=== PATIENT | female | born 1975 | race Caucasian/White ===

== ENCOUNTER 2019-09-26 22:05 | Emergency (ER) | payer BC, OTHER ==
[2019-09-26] MEDS ORDERED: Ondansetron 4 MG/2 ML SDV IVPUSH ONE (22:31)
[2019-09-26] MEDS ORDERED: Sodium Chloride 0.9% 1,000 ML IV ONE (22:31)
[2019-09-26] MEDS ORDERED: Ketorolac 30 MG/ML SDV IVPUSH ONE (22:31)
[2019-09-26] MEDS ORDERED: fentaNYL 100 MCG/2 ML SDV IVPUSH ONE (22:32)
--- NOTE | 2019-09-26 22:36 | EDM.PDOC ---
ED HPI GENERAL MEDICAL PROBLEM - General Chief Complaint: Flank Pain Stated Complaint: Right flank pain Time Seen by Provider: 09/26/19 22:27 Source of Information: Reports: Patient - History of Present Illness INITIAL COMMENTS - FREE TEXT/NARRATIVE: Malorie is a 44 y/o female who comes to the ER via POV accompanied by her for right sided flank pain that she said started 2 days ago and has progressively gotten worse. She has had a kidney stone in the past and this feels very similar. No dysuria, but the flank pain is getting more intense and is starting to wrap around to the front if her abdomen and down into her groin. Right flank Pain Score (Numeric/FACES): 5 - Related Data Allergies Allergy/AdvReac Type Severity Reaction Status Date / Time No Known Allergies Allergy Verified 09/26/19 22:33 Home Meds: Home Meds Ibuprofen 800 mg PO Q8H #90 tablet 09/26/19 [Rx] Ondansetron [Ondansetron ODT] 4 mg PO Q6H PRN #15 tab.rapdis 09/26/19 [Rx] Tamsulosin [Flomax] 0.4 mg PO DAILY #30 cap.er 09/26/19 [Rx] oxyCODONE HCl/Acetaminophen [Oxycodone-Acetaminophen 5-325] 1 - 2 each PO Q4HR 3 Days #30 tablet 09/26/19 [Rx] Past Medical History Genitourinary History: Reports: Renal Calculus Social & Family History - Living Situation & Occupation Living situation: Reports: Review of Systems - Review of Systems Review Of Systems: See Below Constitutional: Reports: No Symptoms Eyes: Reports: No Symptoms Ears: Reports: No Symptoms Nose: Reports: No Symptoms Mouth/Throat: Reports: No Symptoms Respiratory: Reports: No Symptoms Cardiovascular: Reports: No Symptoms GI/Abdominal: Reports: Abdominal Pain, Nausea (slight), Other (flank pain) Genitourinary: Reports: No Symptoms Musculoskeletal: Reports: No Symptoms Skin: Reports: No Symptoms Neurological: Reports: No Symptoms Psychiatric: Reports: No Symptoms ED EXAM, GENERAL - Physical Exam Exam: See Below General Appearance: Alert, WD/WN, No Apparent Distress, Other (Adult female, standing in exam room bedside cart for position of comfort, tears noteed in eyes due to increasing pain.) Ears: Hearing Grossly Normal Nose: Normal Inspection Throat/Mouth: Normal Lips, Normal Teeth, Normal Voice Head: Atraumatic, Normocephalic Neck: Other (Deferred) Respiratory/Chest: No Respiratory Distress, Lungs Clear, Normal Breath Sounds, No Accessory Muscle Use, Chest Non-Tender Cardiovascular: Normal Peripheral Pulses, Regular Rate, Rhythm, No Edema, No Murmur GI/Abdominal: Normal Bowel Sounds, Soft, Non-Tender, No Distention, No Mass, Tender (+RUQ that extends from R flank region). No: Rigid, Rebound, Mass (Female) Exam: Deferred Rectal (Female) Exam: Deferred Back Exam: CVA Tenderness (R) Extremities: Non-Tender, Normal Capillary Refill Neurological: Alert, Oriented, CN II-XII Intact, Normal Cognition, No Motor/ Sensory Deficits Psychiatric: Normal Affect, Normal Mood Skin Exam: Warm, Dry, Intact, Normal Color Lymphatic: No Adenopathy Course - Vital Signs Text/Narrative:: The patient was seen by the [facility]. Labs ordered. She was given a liter of NS, Fentanyl 100mcg IVP, Toradol 30g IVP, and Ondanestron 4 mg IVP. 2340 Patient more comfortable now. Labs reviewed. Note intact blood on UA, neg protein. CT ordered to r/o stone. 0125 [address]CT results reviewed. Note obstructing stone in left ureter. Will consult Urology planning consultant at [facility]. 0[address] Case discussed with ER dr Dr Willard. Will treat patient as an outpatient with Flomax, pain meds, and antiemetics and then have her seen by her PCP to set up a Urology referral. Patient is on agreement, but if she is unable to manage her pain at home, she is advised to return and we will admit her for pain management. 0150 She was given Flomax 0.4mg po x 1 dose. Other discharge instructions were reviewed with her. She left the ER in stable condition. Last Recorded V/S: Last Vital Signs Temp 37.3 C 09/26/19 22:05 Pulse 66 09/27/19 00:10 Resp 16 09/27/19 00:10 BP 174/90 H 09/27/19 00:10 Pulse Ox - Orders/Labs/Meds Orders: Active Orders 24 hr Category Date Time Status Abdomen Pelvis wo Cont [CT] Stat Exams 09/26/19 22:32 Taken Labs: Laboratory Tests 09/26/19 09/26/19 09/26/19 Range/Units 22:20 22:20 22:40 WBC 11.0 H (4.0-10.0) x10^3/uL RBC 5.38 (4.00-5.50) x10^6/uL Hgb 15.3 (12.0-16.0) g/dL Hct 44.6 (33.0-47.0) % MCV 82.9 (78.0-93.0) fL MCH 28.4 (26.0-32.0) pg MCHC 34.3 (32.0-36.0) g/dL RDW Coeff of Cristina 13.4 (10.0-15.0) % Plt Count 307 (130-400) x10^3/uL Neut % (Auto) 61.1 (50.0-80.0) % Lymph % (Auto) 30.3 (25.0-50.0) % [place] % (Auto) 6.4 (2.0-11.0) % Eos % (Auto) 1.7 (0.0-4.0) % Baso % (Auto) 0.5 (0.2-1.2) % Sodium (136-145) mmol/L Potassium (3.5-5.1) mmol/L Chloride (98-107) mmol/L Carbon Dioxide (21-32) mmol/L Anion Gap (10-20) mmol/L BUN (7-18) mg/dL Creatinine (0.55-1.02) mg/dL Est Cr Clr Drug Dosing mL/min Estimated GFR (MDRD) Glucose (74-106) mg/dL Calcium (8.5-10.1) mg/dL Corrected Calcium (8.5-10.1) mg/dL Total Bilirubin (0.2-1.0) mg/dL AST (15-37) U/L ALT (14-59) U/L Alkaline Phosphatase (46-116) U/L Total Protein (6.4-8.2) g/dL Albumin (3.4-5.0) g/dL Globulin Albumin/Globulin Ratio Urine Color Yellow (YELLOW) Urine Appearance Turbid H (CLEAR) Urine pH 7.5 (5.0-8.0) Ur Specific [place] 1.020 Urine Protein Negative (NEGATIVE) mg/dL Urine Glucose (UA) Negative (NEGATIVE) mg/dL Urine Ketones Negative (NEGATIVE) mg/dL Urine Occult Blood Moderate H (NEGATIVE) Urine Nitrite Negative (NEGATIVE) Urine Bilirubin Negative (NEGATIVE) Urine Urobilinogen 0.2 (0.2) EU/dL Ur Leukocyte Esterase Negative (NEGATIVE) Urine RBC 40-50 H (NOT SEEN) /HPF Urine WBC 0-5 (NOT SEEN) /HPF Ur Squamous Epith Cells Occasional H (NEGATIVE) /HPF Amorphous Sediment Many Urine Bacteria Few H (NEGATIVE) /HPF Urine Mucus Few H (NEGATIVE) /LPF Urine HCG, Qual Negative (NEGATIVE) 09/26/19 Range/Units 22:40 WBC (4.0-10.0) x10^3/uL RBC (4.00-5.50) x10^6/uL Hgb (12.0-16.0) g/dL Hct (33.0-47.0) % MCV (78.0-93.0) fL MCH (26.0-32.0) pg MCHC (32.0-36.0) g/dL RDW Coeff of Cristina (10.0-15.0) % Plt Count (130-400) x10^3/uL Neut % (Auto) (50.0-80.0) % Lymph % (Auto) (25.0-50.0) % [place] % (Auto) (2.0-11.0) % Eos % (Auto) (0.0-4.0) % Baso % (Auto) (0.2-1.2) % Sodium 142 (136-145) mmol/L Potassium 3.9 (3.5-5.1) mmol/L Chloride 106 (98-107) mmol/L Carbon Dioxide 24 (21-32) mmol/L Anion Gap 15.9 (10-20) mmol/L BUN 15 (7-18) mg/dL Creatinine 0.8 (0.55-1.02) mg/dL Est Cr Clr Drug Dosing 77.49 mL/min Estimated GFR (MDRD) > 60 Glucose 116 H (74-106) mg/dL Calcium 9.1 (8.5-10.1) mg/dL Corrected Calcium 9.66 (8.5-10.1) mg/dL Total Bilirubin 0.2 (0.2-1.0) mg/dL AST 10 L (15-37) U/L ALT 17 (14-59) U/L Alkaline Phosphatase 62 (46-116) U/L Total Protein 7.4 (6.4-8.2) g/dL Albumin 3.3 L (3.4-5.0) g/dL Globulin 4.1 Albumin/Globulin Ratio 0.80 Urine Color (YELLOW) Urine Appearance (CLEAR) Urine pH (5.0-8.0) Ur Specific [place] Urine Protein (NEGATIVE) mg/dL Urine Glucose (UA) (NEGATIVE) mg/dL Urine Ketones (NEGATIVE) mg/dL Urine Occult Blood (NEGATIVE) Urine Nitrite (NEGATIVE) Urine Bilirubin (NEGATIVE) Urine Urobilinogen (0.2) EU/dL Ur Leukocyte Esterase (NEGATIVE) Urine RBC (NOT SEEN) /HPF Urine WBC (NOT SEEN) /HPF Ur Squamous Epith Cells (NEGATIVE) /HPF Amorphous Sediment Urine Bacteria (NEGATIVE) /HPF Urine Mucus (NEGATIVE) /LPF Urine HCG, Qual (NEGATIVE) Meds: Medications Discontinued Medications Generic Name Dose Route Start Last Admin Trade Name Freq PRN Reason Stop Dose Admin Fentanyl 100 mcg 09/26/19 22:32 09/26/19 22:45 Sublimaze IVPUSH 09/26/19 22:33 100 mcg ONETIME ONE Administration Hydromorphone HCl 1 mg 09/27/19 00:04 09/27/19 00:10 Dilaudid IVPUSH 09/27/19 00:05 1 mg ONETIME ONE Administration Sodium Chloride 1,000 mls @ 999 mls/hr 09/26/19 22:31 09/26/19 22:40 Normal Saline IV 09/26/19 23:31 999 mls/hr ONETIME ONE Administration Ketorolac Tromethamine 30 mg 09/26/19 22:31 09/26/19 22:47 Toradol IVPUSH 09/26/19 22:32 30 mg ONETIME ONE Administration Ondansetron HCl 4 mg 09/26/19 22:31 09/26/19 22:42 Zofran IVPUSH 09/26/19 22:32 4 mg ONETIME ONE Administration - Radiology Interpretation Free Text/Narrative:: CT Abd/Pelvis WO=large 9 mm stone in right kidney, 3.1 obstructing stone in the right ureter at l$, adn moderate right hydronephrosis Departure - Departure Time of Disposition: 01:51 Disposition: Home, Self-Care 01 Condition: Good Clinical Impression: Hydronephrosis with renal calculous obstruction - Discharge Information *PRESCRIPTION DRUG MONITORING PROGRAM REVIEWED*: Yes *COPY OF PRESCRIPTION DRUG MONITORING REPORT IN PATIENT MICHELLE: Not Applicable ( No Rx found on this patient) Prescriptions: oxyCODONE HCl/Acetaminophen [Oxycodone-Acetaminophen 5-325] 1 - 2 each PO Q4HR 3 Days #30 tablet Ibuprofen 800 mg PO Q8H #90 tablet Ondansetron [Ondansetron ODT] 4 mg PO Q6H PRN #15 tab.rapdis PRN Reason: Nausea Tamsulosin [Flomax] 0.4 mg PO DAILY #30 cap.er Instructions: Hydronephrosis, Dietary Guidelines to Help Prevent Kidney Stones , Kidney Stones, [id number] Referrals: [facility] [Outside] Forms: ED Department Discharge Additional Instructions: -Oxycodone/APAP 5/325mg 1-2 tabs oral every 4-6 hours as needed for pain #5(ER) #30(Rx) -Ondanestron 4mg oral every 6 hours needed for nausea #2(ER) #15 (Rx) -Ibuprofen 800mg oral every 8 hours as needed for pain #90(Rx) -Tamsulosin 0.4mg oral daily #30(Rx) -Strain urine and attempt to retrieve stone if able. Save the stone and take to the clinic for analysis. -Call your PCP office in the AM and get a follow up appt scheduled sometime in the next 7 days. Have your PCP get you a Urology referral. You will need to see Urology for the large 9mm stone in your right kidney even you are able to pass the smaller stone in your ureter. -If you are unable to control your pain at home, please return to the ER for further treatment and possible admission. Sepsis Event Note - Focused Exam Vital Signs: Vital Signs Temp Pulse Resp BP 09/27/19 00:10 66 16 174/90 H 09/26/19 22:05 37.3 C 66 16 203/102 H Date Exam was Performed: 09/27/19 Time Exam was Performed: 01:47 - My Orders Last 24 Hours: My Active Orders 09/26/19 22:32 Abdomen Pelvis wo Cont [CT] Stat - Assessment/Plan Last 24 Hours: My Active Orders 09/26/19 22:32 Abdomen Pelvis wo Cont [CT] Stat
[2019-09-26 23:25] LABS: CHLORIDE,CL 106 mmol/L (98-107); SODIUM,NA 142 mmol/L (136-145)
[2019-09-26 23:27] LABS: ANION GAP 15.9 mmol/L (10-20)
[2019-09-27] MEDS ORDERED: HYDROmorphone 1 MG/ML Syringe IVPUSH ONE (00:04)
[2019-09-27] MEDS ORDERED: Take Home: Ondansetron 4 MG Tab.DIS, 2 Tab Pack PO ONE (01:59)
[2019-09-27] MEDS ORDERED: Take Home: Acetaminophen/oxyCODONE 325-5 MG, 5 Tab Pack PO ONE (01:59)
[2019-09-27] MEDS ORDERED: Tamsulosin 0.4 MG Cap.ER PO ONE (02:03)
--- NOTE | 2019-09-27 08:16 | CT ---
[id number] CT/CT Abdomen Pelvis WO IV EXAM: CT Abdomen Pelvis WO IV CLINICAL DATA: RIGHT FLANK PAIN COMPARISON STUDY: None. FINDINGS: Dependent atelectasis at the lung bases bilaterally. The liver, spleen, pancreas and adrenal glands are unremarkable. The gallbladder surgically absent. The left kidney is unremarkable. There is an extrarenal pelvis on the left. No hydronephrosis or hydroureter. There is a punctate stone within the proximal 3rd of the right ureter resulting in mild right hydronephrosis. Additional stones are identified within the right kidney with the largest measuring up to 0.7 cm. No bowel obstruction or inflammation. Colonic diverticulosis without evidence of acute diverticulitis. The appendix is visualized and appears normal. No lymphadenopathy, free fluid, or pneumoperitoneum. The uterus and adnexa are unremarkable. Scattered changes of spondylosis the spine. No fracture or osseous lesion. IMPRESSION: 1. Punctate less than 2 mm stone within the proximal 3rd of the right ureter. While there is an extrarenal pelvis, there appears to be mild associated hydronephrosis. Additional stones within the lower pole of the right kidney measuring up to 0.7 cm. Nigel Deras DO 09/27/19 0816 Thank you for allowing us to participate in the care of your patient.
== END 2019-09-27 02:25 | disposition home or self-care (01) ==
LOC: VM.ED 22:05
DX: N13.2 Hydronephrosis with renal and ureteral calculous obstruction (principal); Z79.899 Other long term (current) drug therapy
CPT/HCPCS: 74176; 80053; 81001; 81025; 85025; 96361; 96374; 96375; 99284-25; A9270-GY; J1170; J1885; J2405; J3010; J7030

== ENCOUNTER 2021-04-25 16:38 | Emergency (ER) | payer BC ==
[2021-04-25] MEDS ORDERED: Sodium Chloride 0.9% 10 ML Syringe FLUSH PRN (17:09)
--- NOTE | 2021-04-25 17:09 | EDM.PDOC ---
ED HPI GENERAL MEDICAL PROBLEM - General Stated Complaint: flank pain Time Seen by Provider: 04/25/21 17:00 Source of Information: Reports: Patient History Limitations: Reports: No Limitations - History of Present Illness INITIAL COMMENTS - FREE TEXT/NARRATIVE: Patient comes emergency department today from home with complaints of right flank pain. This patient has a recent history of a right ureteral stent that was placed in [place] during a cystoscopy with concerns of a stricture as well as some kidney stones while she was having a diagnostic cystoscopy following siobhan hematuria that she has had for quite some time. She initially was quite comfortable following the procedure that was completed on 04-23-21. She was sent home with hydrocodone for pain if it developed. Which he did that night and is slowly gotten worse over the past 2 days. She has been taking her hydrocodone somewhat intermittently but she still has severe pain in her right flank that radiates down to her right groin and into the suprapubic region. She does complain of urinary urgency. As well as urinary frequency. She still has hematuria. No dysuria. No fever no chills. She has had some nausea without vomiting. No chest pain or shortness of breath or difficulty breathing. No cough or congestion. She has been having regular bowel movements. She did talk with her urologist today with the concerns of her continued pain and a CT scan was ordered for tomorrow for evaluation of her continued worsening pain. She comes emergency department today because she cannot take the pain any longer. Right Flank Pain Score (Numeric/FACES): 9 - Related Data Allergies Allergy/AdvReac Type Severity Reaction Status Date / Time No Known Allergies Allergy Verified 04/25/21 17:12 Home Meds: Home Meds Ibuprofen 800 mg PO Q8H #90 tablet 09/26/19 [Rx] Cholecalciferol (Vitamin D3) [Vitamin D3] 2,000 unit PO DAILY 04/25/21 [History] Hydrocodone/Acetaminophen [HYDROcodone-Acetaminophen 5-325 MG] 1 each PO Q6H PRN 04/25/21 [History] Lisinopril/Hydrochlorothiazide [Zestoretic 20-25 mg Tablet] 1 each PO DAILY 02/08 [History] Omeprazole 20 mg PO DAILY 04/25/21 [History] Oxybutynin [Oxybutynin ER] 5 mg PO DAILY 04/25/21 [History] Past Medical History Cardiovascular History: Reports: Hypertension Genitourinary History: Reports: Renal Calculus Other Genitourinary History: Hx of kidney infection. Social & Family History - Living Situation & Occupation Living situation: Reports: ED ROS GENERAL - Review of Systems Review Of Systems: Comprehensive ROS is negative, except as noted in HPI. ED EXAM, GI/ABD - Physical Exam Exam: See Below Text/Narrative:: She is tearful and appear mild to moderately uncomfortable. Exam Limited By: No Limitations General Appearance: Alert, WD/WN, Anxious Eyes: Bilateral: EOMI Respiratory/Chest: No Respiratory Distress, Lungs Clear Cardiovascular: Normal Peripheral Pulses, Regular Rate, Rhythm GI/Abdominal Exam: Normal Bowel Sounds, Soft, Tender (Generalized more in the right lateral and right lower region without guarding or rebound. ). No: Guarding, Rigid, Rebound Back Exam: Full Range of Motion, CVA Tenderness (R). No: CVA Tenderness (L) Extremities: Normal Inspection, Normal Range of Motion Neurological: Alert, Oriented, No Motor/Sensory Deficits Psychiatric: Normal Affect, Normal Mood Skin Exam: Warm, Dry, No Rash, Pallor Course - Vital Signs Last Recorded V/S: Last Vital Signs Temp 98.5 F 04/25/21 16:38 Pulse 54 L 04/25/21 19:00 Resp 16 04/25/21 19:00 BP 148/79 H 04/25/21 19:00 Pulse Ox 98 04/25/21 19:00 - Orders/Labs/Meds Orders: Active Orders 24 hr Category Date Time Status CULTURE URINE [RM] Stat Lab 04/25/21 18:52 Received Sodium Chloride 0.9% [Saline Flush] Med 04/25/21 17:09 Active 10 ml FLUSH ASDIRECTED PRN Peripheral IV Insertion Adult [OM.PC] Stat Oth 04/25/21 17:09 Ordered Medication Orders Sodium Chloride (Sodium Chloride 0.9% 10 Ml Syringe) 10 ml FLUSH ASDIRECTED PRN PRN Reason: Keep Vein Open Labs: Laboratory Tests 04/25/21 04/25/21 04/25/21 Range/Units 17:20 17:20 17:20 WBC 13.3 H (4.0-10.0) x10^3/uL RBC 5.03 (4.00-5.50) x10^6/uL Hgb 14.7 (12.0-16.0) g/dL Hct 42.7 (33.0-47.0) % MCV 84.9 (78.0-93.0) fL MCH 29.2 (26.0-32.0) pg MCHC 34.4 (32.0-36.0) g/dL RDW Coeff of Cristina 13.5 (10.0-15.0) % Plt Count 346 (130-400) x10^3/uL Neut % (Auto) 78.6 (50.0-80.0) % Lymph % (Auto) 14.5 L (25.0-50.0) % [place] % (Auto) 5.0 (2.0-11.0) % Eos % (Auto) 1.4 (0.0-4.0) % Baso % (Auto) 0.5 (0.2-1.2) % Sodium 138 (136-145) mmol/L Potassium 3.4 L (3.5-5.1) mmol/L Chloride 102 (98-107) mmol/L Carbon Dioxide 27 (21-32) mmol/L Anion Gap 12.4 (5-15) mmol/L BUN 15 (7-18) mg/dL Creatinine 1.0 (0.55-1.02) mg/dL Est Cr Clr Drug Dosing TNP Estimated GFR (MDRD) 60 Glucose 160 H (70-99) mg/dL Lactic Acid 1.0 (0.4-2.0) mmol/L Calcium 8.5 (8.5-10.1) mg/dL Corrected Calcium 8.8 (8.5-10.1) mg/dL Total Bilirubin 0.2 (0.2-1.0) mg/dL AST 13 L (15-37) U/L ALT 21 (14-59) U/L Alkaline Phosphatase 57 (46-116) U/L C-Reactive Protein < 0.2 (<=0.9) mg/dL Total Protein 7.8 (6.4-8.2) g/dL Albumin 3.6 (3.4-5.0) g/dL Globulin 4.2 Albumin/Globulin Ratio 0.86 Lipase 77 (73-393) U/L Urine Color (YELLOW) Urine Appearance (CLEAR) Urine pH (5.0-8.0) Ur Specific [place] Urine Protein (NEGATIVE) mg/dL Urine Glucose (UA) (NEGATIVE) mg/dL Urine Ketones (NEGATIVE) mg/dL Urine Occult Blood (NEGATIVE) Urine Nitrite (NEGATIVE) Urine Bilirubin (NEGATIVE) Urine Urobilinogen (0.2) EU/dL Ur Leukocyte Esterase (NEGATIVE) Urine RBC (NOT SEEN) /HPF Urine WBC (NOT SEEN) /HPF Ur Squamous Epith Cells (NOT SEEN) /HPF Urine Bacteria (NOT SEEN) /HPF Urine Mucus (NOT SEEN) /LPF 04/25/21 Range/Units 18:52 WBC (4.0-10.0) x10^3/uL RBC (4.00-5.50) x10^6/uL Hgb (12.0-16.0) g/dL Hct (33.0-47.0) % MCV (78.0-93.0) fL MCH (26.0-32.0) pg MCHC (32.0-36.0) g/dL RDW Coeff of Cristina (10.0-15.0) % Plt Count (130-400) x10^3/uL Neut % (Auto) (50.0-80.0) % Lymph % (Auto) (25.0-50.0) % [place] % (Auto) (2.0-11.0) % Eos % (Auto) (0.0-4.0) % Baso % (Auto) (0.2-1.2) % Sodium (136-145) mmol/L Potassium (3.5-5.1) mmol/L Chloride (98-107) mmol/L Carbon Dioxide (21-32) mmol/L Anion Gap (5-15) mmol/L BUN (7-18) mg/dL Creatinine (0.55-1.02) mg/dL Est Cr Clr Drug Dosing Estimated GFR (MDRD) Glucose (70-99) mg/dL Lactic Acid (0.4-2.0) mmol/L Calcium (8.5-10.1) mg/dL Corrected Calcium (8.5-10.1) mg/dL Total Bilirubin (0.2-1.0) mg/dL AST (15-37) U/L ALT (14-59) U/L Alkaline Phosphatase (46-116) U/L C-Reactive Protein (<=0.9) mg/dL Total Protein (6.4-8.2) g/dL Albumin (3.4-5.0) g/dL Globulin Albumin/Globulin Ratio Lipase (73-393) U/L Urine Color Red H (YELLOW) Urine Appearance Cloudy H (CLEAR) Urine pH 7.0 (5.0-8.0) Ur Specific [place] 1.015 Urine Protein 100 H (NEGATIVE) mg/dL Urine Glucose (UA) Negative (NEGATIVE) mg/dL Urine Ketones Negative (NEGATIVE) mg/dL Urine Occult Blood Large H (NEGATIVE) Urine Nitrite Negative (NEGATIVE) Urine Bilirubin Negative (NEGATIVE) Urine Urobilinogen 0.2 (0.2) EU/dL Ur Leukocyte Esterase Trace H (NEGATIVE) Urine RBC >100 H (NOT SEEN) /HPF Urine WBC 5-10 H (NOT SEEN) /HPF Ur Squamous Epith Cells Rare (NOT SEEN) /HPF Urine Bacteria Occasional H (NOT SEEN) /HPF Urine Mucus Not seen (NOT SEEN) /LPF Meds: Medications Generic Name Dose Route Start Last Admin Trade Name Freq PRN Reason Stop Dose Admin Sodium Chloride 10 ml 04/25/21 17:09 Sodium Chloride 0.9% 10 Ml Syringe FLUSH ASDIRECTED PRN Keep Vein Open Discontinued Medications Generic Name Dose Route Start Last Admin Trade Name Freq PRN Reason Stop Dose Admin Diphenhydramine HCl 25 mg 04/25/21 17:09 04/25/21 17:33 Diphenhydramine 50 Mg/Ml Sdv IVPUSH 04/25/21 17:10 25 mg ONETIME ONE Administration Hydromorphone HCl 0.5 mg 04/25/21 17:09 04/25/21 17:37 Hydromorphone 0.5 Mg/0.5 Ml Syringe IV 04/25/21 17:10 0.5 mg ONETIME ONE Administration Lactated Ringer's 1,000 mls @ 999 mls/hr 04/25/21 17:09 Ringers, Lactated IV 04/25/21 18:09 ONETIME ONE Sodium Chloride 1,000 mls @ 999 mls/hr 04/25/21 18:08 04/25/21 18:01 Normal Saline IV 04/25/21 19:08 999 mls/hr ONETIME ONE Administration Iopamidol 100 ml 04/25/21 17:38 04/25/21 18:06 Iopamidol 612 Mg/Ml 100 Ml Bottle IVPUSH 04/25/21 17:39 100 ml ONETIME ONE Administration Ketorolac Tromethamine 30 mg 04/25/21 19:22 Ketorolac 30 Mg/Ml Sdv IVPUSH 04/25/21 19:23 ONETIME ONE Ondansetron HCl 4 mg 04/25/21 17:09 04/25/21 17:30 Ondansetron 4 Mg/2 Ml Sdv IV 04/25/21 17:10 4 mg ONETIME ONE Administration Oxycodone/Acetaminophen 1 packet 04/25/21 19:33 Take Home: Acetaminophen/Oxycodone 325-5 Mg, 5 Tab Pack PO 04/25/21 19:34 ONETIME ONE - Radiology Interpretation Free Text/Narrative:: CT abdomen pelvis per radiology shows interval stenting of the right ureter with unchanged moderate to severe right renal pelvis and calyceal dilation interval development of stranding along the course of the right ureter which could be reactive to the stent or related to underlying infection correlate with urinalysis is suggested. The pancreas spleen adrenal gland small bowel and appendix are unremarkable. Trace free fluid in the pelvis. No lymphadenopathy or free air. - Re-Assessments/Exams Free Text/Narrative Re-Assessment/Exam: 04/25/21 18:07 IV was established labs are drawn. IV LR 1 L NS Benadryl 25 mg IV push. Zofran 4 mg IV push. Dilaudid 0.[address] abdomen pelvis with without contrast was ordered. CBC with a mild elevation of the WBC at 13.3, hemoglobin 14.7, platelet 347. CMP with a mild [place] low potassium at 3.4 glucose of 160 AST at 13 lipase is normal. See reactive protein less than 0.2. Urinalysis with protein large amount of blood trace amount of leukocytes U RBCs greater than 100 you WBCs 510 this is not surprising with recent instrumentation and stent placement. CT scan abdomen pelvis urogram per radiology shows interval addition of a stenting otherwise nothing acute or concerning. No change from chronic findings. The patient did feel quite a bit better after the above therapy. I did speak with Dr. Henry the urologist from [facility]. HPI ER course findings and concerns were relayed to him. I am unsure of what is causing her pain. Not finding anything else acutely. Is rather odd that postoperatively she initially had no pain but has developed pain since then were not finding any other cause of her pain. He will review her CT scan himself personally tomorrow I did read the results to him today. I explained to the patient I am unsure of what is causing her pain. Not finding anything urgent or emergent concerning at this time. The stent is in the right place per radiology. Her pain is much improved after the above therapy. She has been taking her oxybutynin as she has been prescribed. We will give her some oxycodone for pain for tonight. She will recheck with her urologist tomorrow. She is comfortable with this plan and her questions are answered. Departure - Departure Time of Disposition: 19:31 Disposition: Home, Self-Care 01 Clinical Impression: Post-operative pain, S/P ureteral stent placement, Extrarenal pelvis - Discharge Information Instructions: Pain Medicine Instructions, [id number] Referrals: Damián Camacho, [employer] [Primary Care Provider] - Additional Instructions: Not sure what is causing your pain. Rest tonight. Make sure and drink plenty of fluids. Nsaids such as Ibuprofen as needed for pain. For tonight. Percocet 1 tablet every 6 hrs with food as needed for pain. Take home pack from the ED given. Contact your Urologist tomorrow for follow-up. I did speak with him tonight on the phone and he is aware of the findings tonight. Return to the ED if new or worsening symptoms. Follow up with Urologist tomorrow as above. Sepsis Event Note (ED) - Focused Exam Vital Signs: Vital Signs Temp Pulse Resp BP Pulse Ox 04/25/21 19:00 54 L 16 148/79 H 98 04/25/21 16:38 98.5 F 60 20 161/84 H 97 - My Orders Last 24 Hours: My Active Orders 04/25/21 17:09 Sodium Chloride 0.9% [Saline Flush] 10 ml FLUSH ASDIRECTED PRN Peripheral IV Insertion Adult [OM.PC] Stat 04/25/21 18:52 CULTURE URINE [RM] Stat - Assessment/Plan Last 24 Hours: My Active Orders 04/25/21 17:09 Sodium Chloride 0.9% [Saline Flush] 10 ml FLUSH ASDIRECTED PRN Peripheral IV Insertion Adult [OM.PC] Stat 04/25/21 18:52 CULTURE URINE [RM] Stat
[2021-04-25] MEDS: Lactated Ringers 1,000 ML IV ONE (17:30)
[2021-04-25] MEDS: Ondansetron 4 MG/2 ML SDV IV ONE (17:30)
[2021-04-25] MEDS: diphenhydrAMINE 50 MG/ML SDV IVPUSH ONE (17:33)
[2021-04-25] MEDS: HYDROmorphone 0.5 MG/0.5 ML Syringe IV ONE (17:37)
[2021-04-25 17:54] LABS: ANION GAP 12.4 mmol/L (5-15); CHLORIDE,CL 102 mmol/L (98-107); SODIUM,NA 138 mmol/L (136-145)
[2021-04-25] MEDS: Sodium Chloride 0.9% 1,000 ML IV ONE (18:01)
[2021-04-25] MEDS: Iopamidol 612 MG/ML 100 ML Bottle IVPUSH ONE (18:06)
--- NOTE | 2021-04-25 18:44 | CT ---
[id number] CT/CT Abdomen Pelvis WWO IV EXAM: CT UROGRAM (ABDOMEN AND PELVIS CT WITH AND WITHOUT CONTRAST). INDICATION: Right flank pain with recent stent placement in the ureter. COMPARISON: September 27, 2019. DISCUSSION: Interval placement of a right ureteral stent. The proximal pigtail of the stent is within the distended right renal pelvis near the ureteropelvic junction and the distal portion is within the urinary bladder. A tiny calculus in the proximal ureter on the prior study is no longer identified. There is stable dilation of the renal calyces and pelvis with the renal pelvis measuring up to 47 mm in AP diameter. Interval development of stranding along the course of the right ureter which could be postprocedural/reactive to the underlying stent or represent the sequela of urinary tract infection, correlate with urinalysis. Contrast does not pass distal to the presumed ureteropelvic junction stenosis, but the excreted urinary contrast is layering within the collecting system preventing further evaluation for emptying. There are a few nonobstructing right intrarenal calculi ranging from 1.5 mm to 6 mm in diameter. The left kidney and collecting system are normal in appearance. Prior cholecystectomy with mild associated intrahepatic and extrahepatic bile duct dilation. Small sliding type hiatus hernia. Numerous diverticula of the colon without evidence of diverticulitis. The pancreas, spleen, adrenal glands, small bowel, and appendix are unremarkable. Trace free fluid in the pelvis. No adenopathy or free air. Mild scattered degenerative changes in the spine. IMPRESSION: 1. Interval stenting of the right ureter with unchanged moderate to severe right renal pelvis and calyceal dilation. Interval development of stranding along the course of the right ureter which could be reactive to the stent or relate to underlying infection. Correlation with urinalysis is suggested. Jourdan Doyle MD 04/25/21 [id number] Thank you for allowing us to participate in the care of your patient.
[2021-04-25] MEDS: Take Home: Acetaminophen/oxyCODONE 325-5 MG, 5 Tab Pack PO ONE (19:50)
[2021-04-25] MEDS: Ketorolac 30 MG/ML SDV IVPUSH ONE (19:50)
== END 2021-04-25 20:05 | disposition home or self-care (01) ==
LOC: VM.ED 16:38
DX: T83.84XA Pain due to genitourinary prosthetic devices, implants and grafts, initial encounter (principal); I10 Essential (primary) hypertension; Z87.448 Personal history of other diseases of urinary system; Z79.899 Other long term (current) drug therapy
CPT/HCPCS: 74178; 80053; 81001; 83605; 83690; 85025; 86140; 87086; 87088; 87186; 96374; 96375; 99284; A9270; J1170; J1200; J1885; J2405; J7030; Q9967; J7120

== ENCOUNTER 2023-08-22 17:12 | Emergency (ER) | payer BC ==
[2023-08-22 17:59] LABS: BASOPHILS PERCENT AUTO 0.3 % (0.2-1.2); EOSINOPHILS ABSOLUTE AUTO 0.2 x10^3/uL (0.0-0.5); EOSINOPHILS PERCENT AUTO 1.4 % (0.0-4.0); HEMATOCRIT 40.4 % (33.0-47.0); HEMOGLOBIN 13.6 g/dL (12.0-16.0); IMMATURE GRAN ABSOLUTE AUTO 0.02 x10^3/uL (0.00-0.07); LYMPHOCYTES ABSOLUTE AUTO 3.5 x10^3/uL (1.0-4.8); LYMPHOCYTES PERCENT AUTO 25.7 % (25.0-50.0); MEAN CORPUSCULAR HEMOGLOBIN 28.4 pg (26.0-32.0); MEAN CORPUSCULAR HGB CONC 33.7 g/dL (32.0-36.0); MEAN CORPUSCULAR VOLUME 84.3 fL (78.0-93.0); MONOCYTES ABSOLUTE AUTO 0.9 x10^3/uL (0.0-0.8); MONOCYTES PERCENT AUTO 6.5 % (2.0-11.0); PLATELET COUNT,PLT 311 x10^3/uL (130-400); RED BLOOD CELL COUNT 4.79 x10^6/uL (4.00-5.50); WHITE BLOOD CELL COUNT,WBC 13.7 x10^3/uL (4.0-10.0)
[2023-08-22 18:01] LABS: APPEARANCE,URINE CLEAR (CLEAR); BILIRUBIN,URINE NEGATIVE (NEGATIVE); COLOR,URINE YELLOW (YELLOW); GLUCOSE,URINE NEGATIVE (NEGATIVE); KETONES,URINE NEGATIVE (NEGATIVE); LEUKOCYTE ESTERASE,URINE NEGATIVE (NEGATIVE); NITRITE,URINE NEGATIVE (NEGATIVE); OCCULT BLOOD,URINE NEGATIVE (NEGATIVE); PROTEIN,URINE NEGATIVE (NEGATIVE); UROBILINOGEN,URINE 0.2 EU/dL (0.2)
[2023-08-22 18:16] LABS: ALANINE AMINOTRANSFERASE,ALT 26 U/L (14-59); ALBUMIN 3.5 g/dL (3.4-5.0); ALKALINE PHOSPHATASE 66 U/L (46-116); ASPARTATE AMNIOTRANSFERASE,AST 14 U/L (15-37); BILIRUBIN TOTAL 0.1 mg/dL (0.2-1.0); BLOOD UREA NITROGEN,BUN 13 mg/dL (7-18); CALCIUM 8.6 mg/dL (8.5-10.1); CARBON DIOXIDE,CO2 30 mmol/L (21-32); CHLORIDE,CL 101 mmol/L (98-107); CREATININE 0.7 mg/dL (0.55-1.02); GLUCOSE RANDOM 110 mg/dL (70-99); LIPASE 29 U/L (19-71); SODIUM,NA 141 mmol/L (136-145)
[2023-08-22 18:17] LABS: ESTIMATED GFR 107 mL/min (>=60)
[2023-08-22] MEDS ORDERED: Potassium Chloride 20 MEQ Tab.ER PO SCH (18:45)
[2023-08-22] MEDS ORDERED: Tamsulosin 0.4 MG Cap.ER PO SCH (18:45)
== END 2023-08-22 18:50 | disposition home or self-care (01) ==
LOC: VM.ED 17:12
DX: R10.9 Unspecified abdominal pain (principal); E87.6 Hypokalemia; Z87.442 Personal history of urinary calculi; I10 Essential (primary) hypertension; Z79.899 Other long term (current) drug therapy
CPT/HCPCS: 36415; 80053; 81003; 81025; 83690; 85025; 99283; 99284; A9270-GY